=== PATIENT | male | born 1980 | race Caucasian/White ===

== ENCOUNTER 2016-09-16 11:50 | Emergency (ER) | payer OTHER ==
[2016-09-16] MEDS ORDERED: Sodium Chloride 0.9% 1,000 ML IV ONE (12:07)
[2016-09-16 12:43] LABS: CHLORIDE,CL 108 mmol/L (98-110); SODIUM,NA 140 mmol/L (136-146)
--- NOTE | 2016-09-16 13:01 | EDM.PDOC ---
ED HPI GENERAL MEDICAL PROBLEM - General Chief Complaint: Abdominal Pain Stated Complaint: ABD PAIN Time Seen by Provider: 09/16/16 11:54 Source of Information: Reports: Patient History Limitations: Reports: No Limitations - History of Present Illness INITIAL COMMENTS - FREE TEXT/NARRATIVE: History of present illness: []Patient presents with left lower quadrant pain started yesterday and worsening. Not had any fevers, chills, nausea, vomiting or diarrhea. Patient has had his gallbladder removed. He denies noting anything that makes it worse or better. Review of systems: As per history of present illness and below otherwise all systems reviewed and negative. Past medical history: As per history of present illness and as reviewed below otherwise noncontributory. Surgical history: As per history of present illness and as reviewed below otherwise noncontributory. Social history: No reported history of drug or alcohol abuse. Family history: As per history of present illness and as reviewed below otherwise noncontributory. Physical exam: General: Well developed, well nourished in NAD HEENT: Atraumatic, normocephalic, pupils reactive, negative for conjunctival pallor or scleral icterus, mucous membranes moist, throat clear, neck supple, nontender, trachea midline. Lungs: Clear to auscultation, breath sounds equal bilaterally, chest nontender. Heart: S1S2, regular, negative for clicks, rubs, or JVD. Abdomen: Soft, nondistended, tender left lower quadrant without rebound or guarding. Negative for masses or hepatosplenomegaly. Negative for costovertebral tenderness. Pelvis: Stable nontender. Genitourinary: Deferred. Rectal: Deferred. Extremities: Atraumatic, negative for cords or calf pain. Neurovascular unremarkable. Neuro: Awake, alert, oriented. Cranial nerves II through XII unremarkable. Cerebellum unremarkable. Motor and sensory unremarkable throughout. Exam nonfocal. Diagnostics: []Labs are normal except mildly elevated transaminases. CT shows fatty liver otherwise negative Therapeutics: []She was given pain meds with resolution of his pain Impression: []Abdominal pain unclear etiology Plan: []Tramadol for pain follow-up with primary care return here for any worsening or changes of pain follow-up with primary care otherwise Definitive disposition and diagnosis as appropriate pending reevaluation and review of above. left lower quad Pain Score (Numeric/FACES): 8 - Related Data Allergies Allergy/AdvReac Type Severity Reaction Status Date / Time No Known Allergies Allergy Verified 09/16/16 12:02 Home Meds: Home Meds traMADol [Ultram] 50 mg PO Q8H PRN #12 tablet 09/16/16 [Rx] Past Medical History - Past Surgical History Musculoskeletal Surgical History: Reports: Other (See Below) Other Musculoskeletal Surgeries/Procedures:: ankle surgery Social & Family History - Family History Family Medical History: Noncontributory - Tobacco Use Smoking Status *Q: Never Smoker - Caffeine Use Caffeine Use: Reports: Coffee, Soda - Recreational Drug Use Recreational Drug Use: No ED ROS GENERAL - Review of Systems Review Of Systems: See Below (The history of present illness) ED EXAM, GI/ABD - Physical Exam Exam: See Below (See history of present illness) Course - Vital Signs Last Recorded V/S: Last Vital Signs Temp 35.9 C 09/16/16 12:03 Pulse 92 09/16/16 14:04 Resp 18 09/16/16 14:04 BP 165/95 H 09/16/16 14:04 Pulse Ox 95 09/16/16 14:04 - Orders/Labs/Meds Orders: Active Orders 24 hr Category Date Time Status NPO Now [Nothing per Oral Now Diet] [DIET] Diet 09/16/16 Dinner Active HYDROmorphone [Dilaudid] Med 09/16/16 14:17 Active 0.5 mg IVPUSH Q1H PRN Saline Lock Insert [OM.PC] Stat Oth 09/16/16 12:06 Ordered Medication Orders Hydromorphone HCl (Dilaudid) 0.5 mg IVPUSH Q1H PRN PRN Reason: Pain Last Admin: 09/16/16 14:40 Dose: 0.5 mg Labs: Laboratory Tests 09/16/16 09/16/16 09/16/16 Range/Units 12:16 12:16 13:45 WBC 5.08 (4.0-11.0) K/uL RBC 5.45 (4.50-5.90) M/uL Hgb 18.1 H (13.0-17.0) g/dL Hct 49.7 (38.0-50.0) % MCV 91.2 (80.0-98.0) fL MCH 33.2 H (27.0-32.0) pg MCHC 36.4 (31.0-37.0) g/dL RDW Std Deviation 43.5 (28.0-62.0) fl RDW Coeff of Ryan 13 (11.0-15.0) % Plt Count 168 (150-400) K/uL MPV 10.00 (7.40-12.00) fL Neut % (Auto) 53.5 (48.0-80.0) % Lymph % (Auto) 38.0 (16.0-40.0) % [place] % (Auto) 5.5 (0.0-15.0) % Eos % (Auto) 2.4 (0.0-7.0) % Baso % (Auto) 0.6 (0.0-1.5) % Neut # (Auto) 2.7 (1.4-5.7) K/uL Lymph # (Auto) 1.9 (0.6-2.4) K/uL [place] # (Auto) 0.3 (0.0-0.8) K/uL Eos # (Auto) 0.1 (0.0-0.7) K/uL Baso # (Auto) 0.0 (0.0-0.1) K/uL Nucleated RBC % 0.0 /100WBC Nucleated RBCs # 0 K/uL Sodium 140 (136-146) mmol/L Potassium 3.7 (3.5-5.1) mmol/L Chloride 108 (98-110) mmol/L Carbon Dioxide 22 (21-31) mmol/L BUN 12 (6.0-23.0) mg/dL Creatinine 0.8 (0.6-1.5) mg/dL Est Cr Clr Drug Dosing 138.57 mL/min Estimated GFR (MDRD) > 60.0 ml/min Glucose 158 H (60-110) mg/dL Calcium 9.4 (8.8-10.8) mg/dL Total Bilirubin 0.8 (0.1-1.5) mg/dL AST 63 H (5-40) IU/L ALT 121 H (8-54) IU/L Alkaline Phosphatase 108 (40-150) Total Protein 7.9 (6.0-8.0) g/dL Albumin 4.1 (3.5-5.0) g/dL Globulin 3.8 H (2.0-3.5) g/dL Albumin/Globulin Ratio 1.1 L (1.3-2.8) Lipase 19 (7-80) U/L Urine Color YELLOW Urine Appearance HAZY Urine pH 6.0 (5.0-8.0) Ur Specific [place] >= 1.030 (1.001-1.035) Urine Protein NEGATIVE (NEGATIVE) mg/dL Urine Glucose (UA) NEGATIVE (NEGATIVE) mg/dL Urine Ketones NEGATIVE (NEGATIVE) mg/dL Urine Occult Blood NEGATIVE (NEGATIVE) Urine Nitrite NEGATIVE (NEGATIVE) Urine Bilirubin NEGATIVE (NEGATIVE) Urine Urobilinogen 0.2 (<2.0) EU/dL Ur Leukocyte Esterase NEGATIVE (NEGATIVE) Urine RBC 0-1 (0-2/HPF) Urine WBC 0-2 (0-5/HPF) Ur Epithelial Cells RARE (NONE-FEW) Urine Bacteria FEW (NEGATIVE) Urine Mucus MODERATE (NONE-MOD) Meds: Medications Generic Name Dose Route Start Last Admin Trade Name Freq PRN Reason Stop Dose Admin Hydromorphone HCl 0.5 mg 09/16/16 14:17 09/16/16 14:40 Dilaudid IVPUSH 0.5 mg Q1H PRN Administration Pain Discontinued Medications Generic Name Dose Route Start Last Admin Trade Name Freq PRN Reason Stop Dose Admin Sodium Chloride 1,000 mls @ 999 mls/hr 09/16/16 12:07 09/16/16 12:35 Normal Saline IV 09/16/16 13:07 999 mls/hr .Bolus ONE Administration Iopamidol 100 ml 09/16/16 14:35 09/16/16 14:45 Isovue Multipack-370 (76%) IVPUSH 09/16/16 14:36 100 ml ONETIME STA Administration Ketorolac Tromethamine 30 mg 09/16/16 13:25 09/16/16 13:58 Toradol IVPUSH 09/16/16 13:26 30 mg ONETIME ONE Administration Departure - Departure Time of Disposition: 15:50 Disposition: Home, Self-Care 01 Condition: Good Clinical Impression: Abdominal pain Qualifiers: Abdominal location: left lower quadrant Qualified Code(s): R10.32 - Left lower quadrant pain - Discharge Information Prescriptions: traMADol [Ultram] 50 mg PO Q8H PRN #12 tablet PRN Reason: Pain Referrals: PCP,Not In Area [Primary Care Provider] - Forms: ED Department Discharge Additional Instructions: The following information is given to patients seen in the emergency department who are being discharged to home. This information is to outline your options for follow-up care. We provide all patients seen in our emergency department with a follow-up referral. The need for follow-up, as well as the timing and circumstances, are variable depending upon the specifics of your emergency department visit. If you don't have a primary care physician on staff, we will provide you with a referral. We always advise you to contact your personal physician following an emergency department visit to inform them of the circumstance of the visit and for follow-up with them and/or the need for any referrals to a consulting specialist. The emergency department will also refer you to a specialist when appropriate. This referral assures that you have the opportunity for follow-up care with a specialist. All of these measure are taken in an effort to provide you with optimal care, which includes your follow-up. Under all circumstances we always encourage you to contact your private physician who remains a resource for coordinating your care. When calling for follow-up care, please make the office aware that this follow-up is from your recent emergency room visit. If for any reason you are refused follow-up, please contact the [facility] Emergency Department at and asked to speak to the emergency department charge nurse. Tramadol for pain, follow-up PMD, return here immediately if any symptoms change or worsen such as fevers, vomiting, bloody stools or any other concerns. [facility] [address] [place] [id number] - My Orders Last 24 Hours: My Active Orders 09/16/16 12:06 Saline Lock Insert [OM.PC] Stat 09/16/16 14:17 HYDROmorphone [Dilaudid] 0.5 mg IVPUSH Q1H PRN 09/16/16 Dinner NPO Now [Nothing per Oral Now Diet] [DIET] - Assessment/Plan Last 24 Hours: My Active Orders 09/16/16 12:06 Saline Lock Insert [OM.PC] Stat 09/16/16 14:17 HYDROmorphone [Dilaudid] 0.5 mg IVPUSH Q1H PRN 09/16/16 Dinner NPO Now [Nothing per Oral Now Diet] [DIET]
[2016-09-16] MEDS ORDERED: Ketorolac 30 MG/ML SDV IVPUSH ONE (13:25)
[2016-09-16] MEDS ORDERED: HYDROmorphone 1 MG/ML Syringe IVPUSH PRN (14:17)
[2016-09-16] MEDS ORDERED: Iopamidol 755 MG/ML 500 ML Multipack Bottle IVPUSH STA (14:35)
--- NOTE | 2016-09-16 15:37 | CT ---
CT of the abdomen and pelvis with contrast. HISTORY: Pain TECHNIQUE: Axial CT images were obtained of the abdomen and pelvis following administration of 100 m L of Isovue-370 in the right hand without complication. Coronal and sagittal reconstructions obtaine d. FINDINGS: The lung bases are clear, no pleural effusion. There is likely at least mild fatty infiltration of the liver. Cholecystectomy clips are noted. The adrenal glands, pancreas, and spleen appear normal. There is no bulky retroperitoneal lymphadenopath y or abdominal ascites. The kidneys enhance and function symmetrically without evidence of obstructive uropathy. The large and small bowel are normal in caliber without evidence of obstruction. No focal pericoloni c inflammation or stranding. The appendix appears normal. The urinary bladder is normal. There is no bulky pelvic lymphadenopathy or free pelvic fluid. There are no suspicious osseous abnormalities identified. IMPRESSION: 1. No acute findings demonstrated within the abdomen or pelvis. 2. At least mild fatty infiltration of the liver.
[2016-09-16 19:13] VITALS: BP 135/97
== END 2016-09-16 16:30 | disposition home or self-care (01) ==
LOC: MW.ED 11:50
DX: R10.32 Left lower quadrant pain (principal); Z98.890 Other specified postprocedural states
CPT/HCPCS: 36415; 74177; 80053; 81001; 83690; 85025; 96361; 96374; 96375; 99284; J1170; J1885; J7040; Q9967